=== PATIENT | male | born 1980 | race Caucasian/White ===

== ENCOUNTER → 2016-09-12 | Day surgery (SDC) | payer SELFPAY ==
[~2016-09-12] VITALS: Ht 188 cm; Wt 106.6 kg
[~2016-09-12] MED LIST: SOBOXONE
--- NOTE | 2016-09-12 14:11 | Operative Report ---
Operative/Inv Procedure Report Surgery Date: 09/12/16 Name of Procedure: Abdominoplasty without muscle plication, liposuction flank and lower back Pre-Operative Diagnosis: Lipodystrophy trunk Post-Operative Diagnosis: Same Estimated Blood Loss: scant (200) Surgeon/Can Dryer: SANDEE MURRIETA MD Anesthesia: general endotracheal tube Operative/Procedure Note Note: Patient was counseled regards to the procedure the alternatives risks and expected outcomes as relates to his request for surgical intervention to treat fullness in the lateral waist and low back as well as laxity of the lower abdominal wall skin. The patient does not want his muscles plicated. We talked about umbilical transposition scarring that will result the risk of the procedure and he has accepted. Patient is unconcerned about scarring or the tattoos that will be damaged. Prior to surgery discussed the patient's history of narcotic usage and his use of Suboxone. The patient initially said he would manage postoperatively without narcotics but changes mind. A further discussion about the implications of this and he requested a prescription for Percocet 7.5 mg. He was marked in the standing position for the procedure with the use of a measuring tape. He was shown the areas that would be treated anteriorly and those that would not. Oh sterilely for liposuction. He was then brought to the operating room after signing informed consent. Was placed on the stretcher intubated put into the prone position and appropriately padded. 2 L of tumescent fluid was placed in the low back and lateral flanks. 1500 mL of aspirate was removed. Wounds closed with sutures and glue. He was then turned in the prone position and the previous marked incisions were deepened after freeing the umbilicus. 3 layer closure over drain was carried out of the lower abdominal wall in a semi-Hanna's position. Small amount of additional right lobe was done laterally both sides. Ends dictation
== END ==
LOC: STS 02:29
DX: E65 Localized adiposity (principal); Z41.1 Encounter for cosmetic surgery; Z87.898 Personal history of other specified conditions; Z79.899 Other long term (current) drug therapy; Z87.891 Personal history of nicotine dependence
CPT/HCPCS: J0131; J0171; J0690; J1885; J2250